=== PATIENT | male | born 1985 | race Caucasian/White ===

== ENCOUNTER 2018-10-24 19:37 | Emergency (ER) | payer OTHER, SELFPAY ==
[2018-10-24 19:39] VITALS: BP 162/107; PULSE 100; RESP 18; TEMP 36.6; O2SAT 98; BMI 34.9
--- NOTE | 2018-10-24 19:42 | RAD_ITS ---
STUDY: X-RAY - RIGHT SHOULDER REASON FOR EXAM: Male, 33 years old. Trauma TECHNIQUE: 2 view(s) of the shoulder. COMPARISON: None. FINDINGS: Normal glenohumeral articulation. AC joint dislocation is seen with widening of the coracoclavicular joint space consistent with ligamentous injury. Normal acromion. Normal humeral head and visualized proximal humerus. The soft tissue structures are unremarkable. Normal visualized pulmonary apex. RAD/Shoulder min 2 Views IMPRESSION: Dislocated AC joint with probable disruption of the coracoclavicular ligament. This may be further assessed with MRI if clinically indicated Electronically Signed: Korey Lindo MD at 20:02 EDT , Service support ,
--- NOTE | 2018-10-24 20:39 | ED.DCSUM_ITS ---
- ER Visit Summary Date of Service: 10/24/18 Chief Complaint: Right shoulder injury History of Present Illness: The patient is a 33 M who injured his right shoulder earlier today when he tried to skateboard. He fell and landed on his right shoulder. He did not hit his head or lose consciousness. Denies head or neck pain. Denies weakness or numbness. Denies chest pain, abdominal pain, or back pain. Denies hip or leg pain. He did sustain some abrasions to his right lower leg. No weakness or numbness. No blood thinners. No other symptoms or complaints. Physical Examination: Inspection of the right shoulder show some abrasions, but they are only superficial. He does have some tenderness to palpation over the AC joint and distal clavicle. No obvious deformity. He is neurovascularly intact distally. Test Results: X-rays show what appears to be AC joint separation. No fracture. Emergency Department Course and Treatment: Patient is wearing a sling from home. He will continue this. Will treat with pain medication and refer to orthopedics. He declined pain medicine here. He may also rest and ice the shoulder. Return for any new or worsening issues. Treatment Plan: As above Disposition: Discharge Impression: 1. Right shoulder AC separation This note was generated with [employer] dictation software. It may contain incorrect words, spelling, and punctuation that were not noted in review of the chart prior to signing ED Disposition - Plan for ED Patient: Referrals: Care Physician,No Primary [Primary Care Provider] -
--- NOTE | 2018-10-24 20:39 | ED.DEP ---
ED Disposition - Plan for ED Patient: Instructions: ED Sprain AC Joint Prescriptions: Hydrocodone Bitart/Apap 5-325 [[place] 5MG-325MG] 1 tab PO Q6H PRN PRN 3 Days #10 tab PRN Reason: Pain Referrals: Kimi Almendarez DO [STAFF PHYSICIAN] -
[2018-10-24 21:04] VITALS: PULSE 66; RESP 17; O2SAT 99
== END 2018-10-24 21:22 | disposition home or self-care (01) ==
LOC: ED 20:41
PROVIDERS: Emergency Provider Emergency Medicine
DX: S43.101A Unspecified dislocation of right acromioclavicular joint, initial encounter (principal); S80.811A Abrasion, right lower leg, initial encounter; V00.131A Fall from skateboard, initial encounter; S40.211A Abrasion of right shoulder, initial encounter
CPT/HCPCS: 73030; 99282

== ENCOUNTER → 2018-10-26 | Outpatient (CLI) | payer OTHER, SELFPAY ==
[2018-10-26 09:45] VITALS: BMI 34.9
--- NOTE | 2018-10-26 10:30 | RAD_ITS ---
STUDY: X-RAY - RIGHT SHOULDER REASON FOR EXAM: Male, 33 years old. Injury, pain, AP and y view done on a different visit, axillary view only requested by ordering doctor . TECHNIQUE: Single view(s) of the shoulder. COMPARISON: 24 October 2018 FINDINGS: Normal glenohumeral articulation. Normal acromioclavicular joint. Normal acromion. Normal humeral head and visualized proximal humerus. The soft tissue structures are unremarkable. Normal visualized pulmonary apex. RAD/Shoulder One View IMPRESSION: The mid single view with no evidence of acute process. Previous film showing dislocation of AC joint. Electronically Signed: Sd Huerta DO at 9:07 EDT , Service support ,
== END | disposition home or self-care (01) ==
LOC: HPRAD 10:25
PROVIDERS: Referring Provider Physician Assistant; Visit Provider Physician Assistant
DX: S49.91XA Unspecified injury of right shoulder and upper arm, initial encounter (principal)
CPT/HCPCS: 73020

== ENCOUNTER 2018-11-09 10:30 | Outpatient (RCR) | payer OTHER, SELFPAY ==
[2018-10-26 09:45] VITALS: BMI 34.9
--- NOTE | 2018-11-05 13:38 | HP.PTEVAL_ITS ---
Patient's Visit Information KRISHAN LERNER is a 33 year old M referred to Physical Therapy by MALACHI Gonzalez with a diagnosis of R AC separation. Date of Evaluation: 11/05/18 Physical Therapist: Renan Mitchell, MANNY, OCS, CSCS - Visit Plan Frequency: 2x /Week Duration: 2-4 Weeks Plan: F/u4 days and will teach phase 3 strength if ROM back to normal and D./C to I or increase frequency or recommend PT in [place]. d/C paperwork if appropriate. - Subjective Findings: Tried to skateboard 2 weeks ago adn fell off and landed on R shoulder. Numb for a while and then 5 minutes later very painful. Went to ER and showed AC sprain. ER gave pain meds adn sent to [facility] 2 days later. Did another x ray and sent for PT. Was in sling until lat Monday . Improving. Stil ahs pain with certain movements or standing too long or keep in one position too long. Wakes up at night occasionally with pain. Lifting to side and rotatiin out is a painful move, reaching across body to wash oppoiste arm pit is still tough. Gentle movements like brushing teeth are much better. He is R handed. Usually sleeps on R side which he cannot do. Hobbies are outdoorsman. - Pain R shoulder Pain Intensity (Out of 10): 1 Pain Intensity Range: 1, 5, 8 Comment: lifting sharply. - Objective Walks and trasnfers I and normal. C/S aROM WFL and painfree. reflexes 2/3 bi and tri. Sensation UE WNL to gross light touch. Strength wrist adn elbow B 5/5. L shoulder aAROM WFL and B scap mobility normal although B protracted scap is his posture. R shoulder flex/abd 145 vs 160 L. ext rotation 80 B. IR slightly painful end range R. horiz adduction limited to 0 degrees vs 30 on R at 90 fleion. IR, flexion and horiz add all cause pain. - drop arm, - ext rotation lag test, - sulcus, - scour , - labral test R. Ext rotation R 4/5 adn L 4+, IR 4+ B, flexion 4- r and 4+ L. IR 4+ B. - Goals Goal 1:: Full aROM without pain >1/10 Goal Time Frame: 2 Weeks Goal 2:: I appropr strengthening ex for shoulder for patient to do I as he is moving to [place]. Goal Time Frame: 2 Weeks Goal 3:: Pt feel confident with progression to start new job in [place] in one month. Goal Time Frame: 2 Weeks - Rehabilitation Potential Physical Therapy Diagnosis: R AC separation causing pain and weakness. Rehabilitation Potential: Good - Anticipated Interventions Patient/Client Instruction: Educate patient on: Condition, Plan of Care For the Purpose of:: To decrease pain, To increase ROM Therapeutic Exercise to Include: Strength training, Passive ROM, Active ROM For the Purpose of:: To decrease pain, To increase ROM, To increase tolerance to activity/condition/position, To improve ability of physical actions for home/community/work/leisure Thank you for the opportunity to evaluate your patient. For Medicare and Medicare HMO plans, please review the plan of care and approve it. It will need to be FAXED BACK to us at [phone] for Medicare purposes. For Medicare only, by signing this I certify the plan of care. Please let me know if there are questions or concerns regarding this plan of care. Physician Signatur e: Date:
--- NOTE | 2018-11-09 10:58 | HP.PTDCSUM ---
HP - PT D/C Summary It has been my pleasure to treat KRISHAN LERNER under orders from MALACHI Gonzalez, for the diagnosis of R AC separation for a total of 2 visit(s). Discharge Date: 11/09/18 Please see the following information for a summary of their discharge status. - Subjective Subjective: No pain, motion improving, getting R hand to other shoulder now. - Pain R shoulder Pain Intensity (Out of 10): 0 - Overall Improvement % Improvement: 50 - Objective Objective/Function: Full aROM shoulder, just some minor 1/10 pain with adduction. Otherwise slightly weak and will continue to strengthen I. - Goals Goal 1:: Full aROM without pain >1/10 Goal Progress: Goal Met Goal 2:: I appropr strengthening ex for shoulder for patient to do I as he is moving to [place]. Goal Progress: Goal Met Goal 3:: Pt feel confident with progression to start new job in [place] in one month. Goal Progress: Goal Met - Plan Plan: D/C to [facility], pt moving to [place] - D/C Information Discharge Comments: Doing well and will continue with HEP in [place]. call if problems. If there are questions or concerns regarding this patient's physical therapy, please feel free to call me at [phone]. Thank you for the referral of this patient. Sincerely, Renan Mitchell, DPT, OCS, CSCS
== END 2018-11-09 19:00 | disposition home or self-care (01) ==
LOC: PT 10:30
PROVIDERS: Referring Provider Physician Assistant; Visit Provider Physician Assistant
DX: S43.101D Unspecified dislocation of right acromioclavicular joint, subsequent encounter (principal)
CPT/HCPCS: 97110; 97161

== ENCOUNTER → 2019-05-27 21:18 | Outpatient (CLI) | payer OTHER, SELFPAY ==
[2018-10-26 09:45] VITALS: BMI 34.9
== END ==
LOC: SL 21:18
PROVIDERS: Family Provider Nurse Practitioner; PCP Nurse Practitioner; Referring Provider Nurse Practitioner; Visit Provider Nurse Practitioner
DX: R06.83 Snoring (principal); Z72.820 Sleep deprivation
CPT/HCPCS: 95810